=== PATIENT | male | born 1965 | race Two or more races ===

== ENCOUNTER 2018-11-15 16:14 | Emergency (ER) | payer MEDICAID ==
[~2018-11-15] VITALS: Ht 172.7 cm; Wt 71.2 kg
[2018-11-15 16:29] VITALS: BP 120/87
== END 2018-11-15 17:41 | disposition home or self-care (01) ==
LOC: ER 16:22
DX: S63.91XA Sprain of unspecified part of right wrist and hand, initial encounter (principal); M54.2 Cervicalgia; V43.52XA Car driver injured in collision with other type car in traffic accident, initial encounter; Y93.I9 Activity, other involving external motion; Y92.488 Other paved roadways as the place of occurrence of the external cause; Y99.8 Other external cause status
CPT/HCPCS: 72040; 73130

== ENCOUNTER 2024-08-24 11:14 | Emergency (ER) | payer MEDICAID, OTHER ==
[~2024-08-24] VITALS: Ht 182.9 cm; Wt 76.1 kg
[2024-08-24 11:46] VITALS: BP 137/95; PULSE 93; RESP 16; TEMP 97.3; O2SAT 96
--- NOTE | 2024-08-24 12:11 | ED.PDOC ---
Musculoskeletal HPI Comments 58 year old male presents for L ankle pain inverting his ankle Happened 7 days ago Still able to bear weight Denies previous surgeries to the ankle Denies redness or swelling around the ankle Denies fever chills night sweats nausea vomiting Chief Complaint: Lower Extremity Time Seen by MD: 11:34 Primary Care Provider: unknown Reviewed Notes: Nurses Notes, Medications, Allergies Allergies: Coded Allergies: NO KNOWN ALLERGIES (Unverified , 11/15/18) Home Meds Active Scripts Naproxen (Naproxen) 500 Mg Tab, 500 MG PO BIDPC for 10 Days, #20 TAB 0 Refills Prov:BRE NICHOLS [employer] 08/24/24 Information Source: Patient Mode of Arrival: Ambulatory Past Medical History PAST MEDICAL HISTORY: Denies Surgical History: Denies all surgeries Family History Family History: Unknown Social History Smoker: Non-Smoker Lives In: Home All Other Systems: Reviewed and Negative (PER HPI) Physical Exam General Appearance: No Apparent Distress, Normal HEENT: Normal ENT Inspection, Pharynx Normal, TMs Normal Neck: Full Range of Motion, Non-Tender, Normal, Normal Inspection Respiratory: Chest Non-Tender, Lungs Clear, No Accessory Muscle Use, No Respiratory Distress, Normal Breath Sounds Cardiovascular: No Murmur, No Gallop, Regular Rate/Rhythm Breast Exam: Deferred Gastrointestinal: No Organomegaly, Non Tender, No Pulsatile Mass, Normal Bowel Sounds, Soft Genitalia: Deferred Pelvic: Deferred Rectal: Deferred Extremities: No calf tenderness, Normal capillary refill, Normal inspection, Normal range of motion, Non-tender, No pedal edema Musculoskeletal : Location: Left Extremity Location: Ankle (NO GROSS ABNORMALITY. DP 2+. DISTAL NEURO SENSATION INTACT. FULL FLEXION-EXTENSION) Apperance: Normal Neurologic: Alert, No Motor Deficits, Normal Affect, No Sensory Deficits Cerebellar Function: Normal Reflexes: Normal Skin: Dry, Normal Color, Warm Lymphatic: No Adenopathy Was a procedure done? Was a procedure done?: No Differential Diagnosis EXT Differential Diagnosis: Fracture, Sprain, Dislocation X-Ray, Labs, Meds, VS Vital Signs Date Time Temp Pulse Resp B/P (MAP) Pulse Ox O2 Delivery O2 Flow Rate FiO2 08/24/24 11:46 97.3 93 16 137/95 (109) 96 97.3 08/24/24 11:46 93 16 96 Room Air 08/24/24 11:31 97.3 93 16 137/95 (670) 07 97.3 PATIENT: BERYL HELMS ACCT: [id number] UNIT: [id number] : 1965 LOC: ER ROOM / BED: / AGE / SEX: 58 / M ADM STATUS: REG ER SERVICE 1211 ORDERING PHYSICIAN: BRE NICHOLS NP PROCEDURE(s): LANKL - L ANKLE 3 VIEW REASON: inverted ankle. r/o fracture ORDER NUMBER(s): [id number], ACCESSION NUMBER(s): [id number] CLINICAL INDICATION: Trauma TECHNIQUE: 3 radiographic views of the left ankle were obtained. Comparison: None FINDINGS/IMPRESSION: There is no evidence of acute fracture or dislocation. Chronic medial malleolus fracture. The visualized joint space is well maintained. The alignment is anatomical. There is no radiopaque foreign body. ATED BY: YOSEF PAYAN MD DICTATED DATE/TIME: 08/24/24 1240 SIGNED BY: YOSEF PAYAN MD SIGNED DATE/TIME: 08/24/24 1240 CC: X-Ray, Labs, Meds, VS Comment History and examination consistent of muscular injury X-rays ordered, read by radiologist and reviewed by me Take IBU 600 w/ food as needed for pain Recommended heat therapy Reviewed RICE management Avoid heavy lifting or strenuous activity Recommended range of motion exercises and limit heavy activity for 1 week If no improvement advised patient to return to the emergency department for follow-up. Time of 1ST Reevaluation: 13:07 Reevaluation 1ST: Improved Patient Education/Counseling: Diagnosis, Treatment Family Education/Counseling: Diagnosis, Treatment Departure 1 Departure Time of Disposition: 13:09 Impression: Primary Impression: Fracture of medial malleolus Qualified Codes: S82.55XS - Nondisplaced fracture of medial malleolus of l eft tibia, sequela Disposition: 01 HOME / SELF CARE / HOMELESS Condition: Stable e-Prescriptions Naproxen (Naproxen) 500 Mg Tab 500 MG PO BIDPC for 10 Days, #20 TAB 0 Refills Prov: BRE NICHOLS NP 08/24/24 Discharged With: Self Critical Care Note Critical Care Time?: No Stability Stability form required: No Heart Score Heart Score: Heart Score Response (Comments) Value History N/A 0 EKG N/A 0 Age N/A 0 Risk Factors N/A 0 Troponin N/A 0 Total 0 BRE NICHOLS [employer] Aug 24, 2024 12:11
--- NOTE | 2024-08-24 12:42 | DVH ---
CLINICAL INDICATION: Trauma TECHNIQUE: 3 radiographic views of the left ankle were obtained. Comparison: None FINDINGS/IMPRESSION: There is no evidence of acute fracture or dislocation. Chronic medial malleolus fracture. The visualized joint space is well maintained. The alignment is anatomical. There is no radiopaque foreign body.
[2024-08-24] MEDS ORDERED: NAPR-746 PO (13:10)
== END 2024-08-24 13:16 | disposition home or self-care (01) ==
LOC: ER 11:14
DX: S82.52XA Displaced fracture of medial malleolus of left tibia, initial encounter for closed fracture (principal); X50.1XXA Overexertion from prolonged static or awkward postures, initial encounter; Y93.89 Activity, other specified; Y92.89 Other specified places as the place of occurrence of the external cause; Y99.8 Other external cause status
CPT/HCPCS: 73610